=== PATIENT | female | born 1990 | race Caucasian/White ===

== ENCOUNTER 2017-01-26 05:03 | Inpatient (IN) | payer BC ==
[2017-01-26] MEDS ORDERED: Nalbuphine 20 MG/1 ML Amp IVPUSH PRN (05:40)
[2017-01-26] MEDS ORDERED: Lidocaine 1% 50 ML MDV INJECT ONE (05:40)
[2017-01-26] MEDS ORDERED: Sodium Chloride 0.9% 10 ML Syringe FLUSH PRN (05:40)
[2017-01-26] MEDS ORDERED: OXYTOCIN IV SCH (05:45)
[2017-01-26] MEDS ORDERED: LACTATED RINGERS IV SCH (05:45)
[2017-01-26] MEDS: Lactated Ringers 1,000 ML IV SCH ×3 (06:00→09:14)
--- NOTE | 2017-01-26 07:50 | PCM.LDHP ---
L&D History of Present Illness - General Date of Service: 01/26/17 Admit Problem/Dx: Patient Status Order with Admit Dx/Problem 01/26/17 05:40 Patient Status [ADT] Routine Patient Status: Refer to Observation Admission Diagnosis/Problem: Normal labor Reason for Admit: active labor Nurse Unit Type: Labor and Delivery Admitting Physician: Yara Gutierrez Attending Physician: Yara Gutierrez Admission Diagnosis/Problem Admission Diagnosis/Problem Normal labor 01/26/17 07:44 26 yo at 40 weeks 1 day gestation with SROM at 0100. Presented to Labor and delivery with irregular contractions at about 0500. Active movement. reassuring heart tones. no vaginal bleeding. clear vaginal fluid. Routine care, complicated by recurrent pruritis of uncertain etiology. EDC based on certain LMP with 20 week EDC within 3 days. O neg GBS Neg Rub Immune 01/26/17 07:50 Source of Information: Patient History Limitations: Reports: No limitations - History of Present Illness Location, : Reports: Abdomen Quality: Reports: Ache Severity: moderate Improves with: Reports: None Worsens with: Reports: None Associated Symptoms: Reports: vaginal fluid. Denies: vaginal bleeding - Related Data Allergies/Adverse Reactions: Allergies Allergy/AdvReac Type Severity Reaction Status Date / Time nuts Allergy Itching Uncoded 05/14/16 10:42 Home Medications: Home Meds . 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: Neurological History: Reports: Migraines Other Neuro History: daily Psychiatric History: Reports: Depression Other Psychiatric History: States she was taking medication for depression before getting , no suicide ideation, feeling sad and feeling like she didnt want to do anything - Infectious Disease History Infectious Disease History: Reports: Chicken pox Social & Family History - Family History Family Medical History: Unobtainable - Tobacco Use Smoking Status *Q: Never Smoker Second Hand Smoke Exposure: No - Caffeine Use Caffeine Use: Reports: None - Alcohol Use Days Per Week of Alcohol Use: 0 - Recreational Drug Use Recreational Drug Use: No H&P Review of Systems - Review of Systems: Review Of Systems: See Below General: Reports: no symptoms HEENT: Reports: no symptoms Pulmonary: Reports: no symptoms Cardiovascular: Reports: no symptoms Gastrointestinal: Reports: Abdominal pain Genitourinary: Reports: no symptoms Musculoskeletal: Reports: no symptoms Skin: Reports: no symptoms Psychiatric: Reports: no symptoms Neurological: Reports: no symptoms Hematologic/Lymphatic: Reports: no symptoms Immunologic: Reports: no symptoms L&D Exam - Exam Exam: See Below - Vital Signs Weight: 78.018 kg - OB Specific Contraction Intensity: Mild to Moderate movement: active heart tones: present heart tones per min: 140 Heart Rate (FHR) Variability: Moderate (6-25 bmp) Presentation: Vertex - Kelley Score Kelley Score Cervix Position: Midposition Kelley Score Consistency: Soft Kelley Score Effacement: 51-70% Kelley Score Dilation: > 5 cm Kelley Score Infant's Station: -3 Kelley Score Total: 8 - Exam General: alert, oriented HEENT: Conjunctiva clear Neck: supple Genitourinary: Normal external exam Extremities: normal inspection. No: edema Skin: warm, dry Psychiatric: alert, normal affect, normal mood - Patient Data Lab Results last 24 hrs: Laboratory Results - last 24 hr 01/26/17 Range/Units 05:50 WBC 8.53 (3.98-10.04) K/mm3 RBC 3.85 L (3.98-5.22) M/mm3 Hgb 10.0 L (11.2-15.7) gm/L Hct 32.0 L (34.1-44.9) % MCV 83.1 (79.4-94.8) fl MCH 26.0 (25.6-32.2) pg MCHC 31.3 L (32.2-35.5) g/dl RDW Std Deviation 41.2 (36.4-46.3) fL Plt Count 154 L (182-369) K/mm3 MPV 10.9 (9.4-12.3) fl Result Diagrams: 01/26/17 05:50 - Problem List (1) Normal labor SNOMED Code(s): 76134523 ICD Code: O80 - ENCOUNTER FOR FULL-TERM UNCOMPLICATED DELIVERY; Z37.9 - OUTCOME OF DELIVERY, UNSPECIFIED Status: Acute Current Visit: No Problem List Initiated/Reviewed/Updated: Yes Orders Last 24hrs: Active Orders 24 hr Category Date Time Status Patient Status [ADT] Routine ADT 01/26/17 05:40 Active Activity as Tolerated [RC] PFP Care 01/26/17 05:40 Active Communication Order [RC] ASDIRECTED Care 01/26/17 05:40 Active Heart Tones [RC] ASDIRECTED Care 01/26/17 05:40 Active Notify Provider [RC] PFP Care 01/26/17 05:40 Active Notify Provider [RC] PRN Care 01/26/17 05:40 Active Peripheral IV Care [RC] . DIRECTED Care 01/26/17 05:40 Active Vital Signs [RC] PER UNIT ROUTINE Care 01/26/17 05:40 Active Clear Liquid Diet [DIET] Diet 01/26/17 Breakfast Active Lactated Ringers [Ringers, Lactated] 1,000 ml Med 01/26/17 05:45 Active IV ASDIRECTED Nalbuphine [Nubain] Med 01/26/17 05:40 Active 10 mg IVPUSH Q2H PRN Oxytocin/Lactated Ringers [Pitocin in LR 10 Units/1,000 Med 01/26/17 05:45 Active ML] 10 units in 1,000 ml IV ASDIRECTED Sodium Chloride 0.9% [Saline Flush] Med 01/26/17 05:40 Active 10 ml FLUSH ASDIRECTED PRN Electronic Heart Tones Ext w TOCO [WOMSER] Oth 01/26/17 05:40 Ordered Routine Electronic Heart Tones Internal [WOMSER] Per Unit Oth 01/26/17 05:40 Ordered Routine Peripheral IV Insertion Adult [OM.PC] Routine Oth 01/26/17 05:40 Ordered Resuscitation Status Routine Resus Stat 01/26/17 05:40 Ordered Medication Orders Lactated Ringer's (Ringers, Lactated) 1,000 mls @ 100 mls/hr IV ASDIRECTED PREMA Oxytocin/Lactated Ringer's (Pitocin In Lr 10 Units/1,000 Ml) 10 units in 1,000 mls @ 500 mls/hr IV ASDIRECTED PREMA Nalbuphine HCl (Nubain) 10 mg IVPUSH Q2H PRN PRN Reason: Pain (moderate 4-6) Sodium Chloride (Saline Flush) 10 ml FLUSH ASDIRECTED PRN PRN Reason: Keep Vein Open Assessment/Plan Comment:: 26 yo at 40 weeks 1 day gestation with SROM at home Pt prefers epidural Continue with expectant management. GBS neg-no abx needed at this time.
[2017-01-26] MEDS ORDERED: fentaNYL 100 MCG/2 ML SDV ONE (08:15)
[2017-01-26] MEDS ORDERED: fentaNYL 100 MCG/2 ML SDV EPIDUR ONE (08:25)
[2017-01-26] MEDS ORDERED: Bupivacaine/fentaNYL/NS 100 ML Bag EPIDUR SCH (08:30)
--- NOTE | 2017-01-26 08:47 | PCM.PREANE ---
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 Respiratory: Reports: no symptoms Cardiovascular: Reports: no symptoms GI: Reports: no symptoms Other: Reports: none - PHYSICAL ASSESSMENT O2 Sat by Pulse Oximetry: 99 RR: 18 Vital Signs: Last Vital Signs Temp 36.9 C 01/26/17 05:30 Pulse 99 01/26/17 05:30 Resp 18 01/26/17 05:30 BP 123/74 01/26/17 05:30 Pulse Ox Height: 1.55 m Weight: 78.018 kg ASA Class: 2 Mental Status: alert & oriented x3 Airway Class: Mallampati = 1 Dentition: Reports: normal dentition Thyro-Mental Finger Breadths: 3 Mouth Opening Finger Breadths: 5 ROM/Head Extension: full Respiratory Status: lungs clear to auscultation bilaterally Cardiovascular Status: regular rate & rhythm - LAB Values: Laboratory Last Values WBC 8.53 K/mm3 (3.98-10.04) 01/26/17 05:50 RBC 3.85 M/mm3 (3.98-5.22) L 01/26/17 05:50 Hgb 10.0 gm/L (11.2-15.7) L 01/26/17 05:50 Hct 32.0 % (34.1-44.9) L 01/26/17 05:50 MCV 83.1 fl (79.4-94.8) 01/26/17 05:50 MCH 26.0 pg (25.6-32.2) 01/26/17 05:50 MCHC 31.3 g/dl (32.2-35.5) L 01/26/17 05:50 RDW Std Deviation 41.2 fL (36.4-46.3) 01/26/17 05:50 Plt Count 154 K/mm3 (182-369) L 01/26/17 05:50 MPV 10.9 fl (9.4-12.3) 01/26/17 05:50 - ALLERGIES Allergies/Adverse Reactions: Allergies Allergy/AdvReac Type Severity Reaction Status Date / Time nuts Allergy Itching Uncoded 05/14/16 10:42 - BLOOD Blood Available: No - ANESTHESIA PLAN Preop Beta Arabella: No Anesthesia Type Planned: epidural - ACKNOWLEDGEMENTS Pt an appropriate candidate for the planned anesthesia: Yes Alternatives and risks of anesthesia discussed w pt/guardian: Yes Pt/Guardian understands and agree with anesthesia plan: Yes PreAnesthesia Questionnaire - Past Health History Medical/Surgical History: Denies Medical/Surgical History Gastrointestinal History: Reports: GERD (with ) 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 (currently 40 weeks ) Para: 2 Neurological History: Reports: Migraines Other Neuro History: daily Psychiatric History: Reports: Depression Other Psychiatric History: States she was taking medication for depression before getting , no suicide ideation, feeling sad and feeling like she didnt want to do anything - Infectious Disease History Infectious Disease History: Reports: Chicken pox - History Comment History Comment: Home Meds: Vitamins - SUBSTANCE USE Smoking Status *Q: Never Smoker Tobacco Use Within Last Twelve Months: No Second Hand Smoke Exposure: No Days Per Week of Alcohol Use: 0 Recreational Drug Use History: No - HOME MEDS Home Medications: Home Meds . [No Known Home Meds] 05/14/16 [History] - CURRENT (IN HOUSE) MEDS Current Meds: Current Medications Fentanyl (Sublimaze) 100 mcg EPIDUR ONETIME ONE Stop: 01/26/17 08:26 Fentanyl/Bupivacaine HCl (Fentanyl/Bupivacaine/Ns 2 Mcg-0.125% 100 Ml) 100 ml EPIDUR ASDIRECTED [facility] Lactated Ringer's (Ringers, Lactated) 1,000 mls @ 100 mls/hr IV ASDIRECTED [facility] Last Admin: 01/26/17 08:30 Dose: 100 mls/hr Oxytocin/Lactated Ringer's (Pitocin In Lr 10 Units/1,000 Ml) 10 units in 1,000 mls @ 500 mls/hr IV ASDIRECTED [facility] Nalbuphine HCl (Nubain) 10 mg IVPUSH Q2H PRN PRN Reason: Pain (moderate 4-6) Sodium Chloride (Saline Flush) 10 ml FLUSH ASDIRECTED PRN PRN Reason: Keep Vein Open Discontinued Medications Fentanyl (Sublimaze) Confirm Administered Dose 100 mcg .ROUTE .STK-MED ONE Stop: 01/26/17 08:16 Last Admin: 01/26/17 08:26 Dose: Not Given Lidocaine HCl (Xylocaine 1%) 20 ml INJECT ONETIME ONE Stop: 01/26/17 05:41
[2017-01-26] MEDS ORDERED: ePHEDrine 50 MG/ML SDV IVPUSH PRN (08:50)
[2017-01-26] MEDS ORDERED: diphenhydrAMINE 50 MG/ML SDV IVPUSH PRN (08:50)
[2017-01-26] MEDS ORDERED: Witch Hazel Medicated Pads 100/Jar TOP PRN (11:55)
[2017-01-26] MEDS ORDERED: Docusate Sodium 100 MG Cap PO PRN (11:55)
[2017-01-26] MEDS ORDERED: Benzocaine/Menthol 20%-0.5% Spray 56 GM Canister TOP PRN (11:55)
[2017-01-26] MEDS ORDERED: Lanolin 100% Cream 7 GM Tube TOP PRN (11:55)
[2017-01-26] MEDS ORDERED: Acetaminophen 325 MG Tab PO PRN (11:55)
[2017-01-26] MEDS ORDERED: Bupivacaine 0.25% 10 ML SDV ONE (12:00)
--- NOTE | 2017-01-26 12:08 | PCM.SN ---
- Free Text/Narrative Note: ON at 1115 am this 26 yo female under epidural anesthesia delivered a viable male infant weighing 7 lbs 12 ounces with scores of 9 and 9 at 1 and 5 minutes resptectively. Delviery was via toa sterile field. Nuchal cord x 1 was reduced over the body. Infant was placed on mom's abdomen where a nurse was waiting. Cord was clamped and cut. An intact placenta with a 3 vessel cord delivered spontaneously at 1118. 10 units of pitocin was administered IV. An 1st degree perineal laceration was repaired in the usual fashion with 3-0 vicryl. and mom are in delivery room in stable condition.
[2017-01-26] MEDS: Ibuprofen 600 MG Tab PO PRN ×2 (12:43→18:55)
[2017-01-27] MEDS: Ibuprofen 600 MG Tab PO PRN ×4 (01:19→17:02)
--- NOTE | 2017-01-27 07:52 | PCM.DCSUM1 ---
Discharge Summary - Hospital Course Free Text/Narrative:: 26 yo at PPD #1 s/p NVD 1st degree perineal laceration 7 lbs 12 ounces Infant O pos Mother O neg GBS neg HGB 9.1 Exam unremarkable discharge to home - Discharge Data Discharge Date: 01/27/17 Discharge Disposition: Home, Self-Care 01 Condition: Good - Discharge Diagnosis/Problem(s) (1) Normal labor SNOMED Code(s): 52322779 ICD Code: O80 - ENCOUNTER FOR FULL-TERM UNCOMPLICATED DELIVERY; Z37.9 - OUTCOME OF DELIVERY, UNSPECIFIED Status: Acute Current Visit: Yes - Patient Instructions Diet: Heart Healthy Diet, Usual Diet as Tolerated Activity: As Tolerated, Rest and Relax Today Activity, Other: No intercourse for 6 week, no tampon use for 6 weeks Driving: May Drive Today Showering/Bathing: March Shower Wound/Incision Care: Keep Operative Site/Wound Site Clean and Dry Notify Provider of: Fever, Increased Pain, Swelling and Redness, Drainage, Nausea and/or Vomiting Other/Special Instructions: Start Slo Fe iron supplement 1-2 times daily for 1 month. continue on vitamin - Discharge Plan Home Medications: Home Meds Acetaminophen [Tylenol] 650 mg PO Q4H PRN #0 tablet 01/27/17 [Rx] Benzocaine/Menthol [Dermoplast Pain Relief [place]] 1 applic TOP ASDIRECTED PRN # 0 canister 01/27/17 [Rx] Docusate Sodium [Colace] 100 mg PO BID PRN #0 cap 01/27/17 [Rx] Ibuprofen [IJD: Ibuprofen] 600 mg PO Q4H PRN #0 tablet 01/27/17 [Rx] Witch Lisa [Tucks] 1 pad TOP ASDIRECTED PRN #0 pad 01/27/17 [Rx] Referrals: Yara Gutierrez MD [Primary Care Provider] - (8 weeks) - Discharge Summary/Plan Comment DC Time >30 min.: No - General Info Date of Service: 01/27/17 Functional Status: Reports: pain controlled, tolerating diet, ambulating, urinating - Review of Systems General: Reports: no symptoms Pulmonary: Reports: no symptoms Cardiovascular: Reports: no symptoms Genitourinary: Reports: no symptoms - Patient Data Vitals - Most Recent: Last Vital Signs Temp 36.3 C 03/02/17 01:19 Pulse 92 01/27/17 01:19 Resp 17 01/27/17 01:19 BP 102/69 01/27/17 01:19 Pulse Ox 97 01/27/17 01:19 Weight - Most Recent: 78.018 kg I&O - Last 24 hours: Intake & Output 01/26/17 01/27/17 01/27/17 22:59 06:59 14:59 Intake Total 2 Balance 2 Lab Results - Last 24 hrs: Laboratory Results - last 24 hr 01/26/17 01/27/17 Range/Units 13:05 06:19 Hgb 9.1 L (11.2-15.7) gm/L Hct 29.1 L (34.1-44.9) % Blood Type O NEGATIVE Gel Antibody Screen Positive Screen 0 ros/5 flds - neg RhIG Candidate? Yes Rhogam Indicated Yes, baby rh pos H Med Orders - Current: Current Medications Acetaminophen (Tylenol) 650 mg PO Q4H PRN PRN Reason: mild pain or fever Last Admin: 01/26/17 19:30 Dose: 650 mg Benzocaine/Menthol (Dermoplast Pain Relief [place]) 0 gm TOP ASDIRECTED PRN PRN Reason: Perineal Comfort Measure Last Admin: 01/26/17 12:40 Dose: 1 applic Docusate Sodium (Colace) 100 mg PO BID PRN PRN Reason: Constipation Emollient Ointment (Lansinoh Hpa) 0 gm TOP ASDIRECTED PRN PRN Reason: Sore Nipples Fentanyl/Bupivacaine HCl (Fentanyl/Bupivacaine/Ns 2 Mcg-0.125% 100 Ml) 100 ml EPIDUR ASDIRECTED PREMA Last Admin: 01/26/17 08:56 Dose: 100 ml Ibuprofen (Motrin) 600 mg PO Q4H PRN PRN Reason: Mild pain or fever Last Admin: 01/27/17 06:22 Dose: 600 mg Witch Lisa (Tucks) 1 pad TOP ASDIRECTED PRN PRN Reason: Hemorrhoid pain Last Admin: 01/26/17 12:40 Dose: 1 applic Discontinued Medications Diphenhydramine HCl (Benadryl) 25 mg IVPUSH Q6H PRN PRN Reason: pruritis Stop: 01/26/17 18:00 Ephedrine Sulfate (Ephedrine Sulfate) 5 mg IVPUSH ASDIRECTED PRN PRN Reason: Hypotension Stop: 01/26/17 18:00 Fentanyl (Sublimaze) Confirm Administered Dose 100 mcg .ROUTE .STK-MED ONE Stop: 01/26/17 08:16 Last Admin: 01/26/17 08:26 Dose: Not Given Fentanyl (Sublimaze) 100 mcg EPIDUR ONETIME ONE Stop: 01/26/17 08:26 Last Admin: 01/26/17 08:54 Dose: 100 mcg Lactated Ringer's (Ringers, Lactated) 1,000 mls @ 100 mls/hr IV ASDIRECTED [facility] Last Admin: 01/26/17 09:14 Dose: 100 mls/hr Oxytocin/Lactated Ringer's (Pitocin In Lr 10 Units/1,000 Ml) 10 units in 1,000 mls @ 500 mls/hr IV ASDIRECTED [facility] Last Admin: 01/26/17 11:28 Dose: 500 mls/hr Lidocaine HCl (Xylocaine 1%) 20 ml INJECT ONETIME ONE Stop: 01/26/17 05:41 Last Admin: 01/26/17 14:54 Dose: Not Given Nalbuphine HCl (Nubain) 10 mg IVPUSH Q2H PRN PRN Reason: Pain (moderate 4-6) Sodium Chloride (Saline Flush) 10 ml FLUSH ASDIRECTED PRN PRN Reason: Keep Vein Open - Exam General: Reports: alert, oriented HEENT: Reports: Pupils equal Cardiovascular: Reports: tachycardia Abdomen: Reports: bowel sounds present, soft, no tenderness, no distension Extremities: Reports: no edema, normal pulses Skin: Reports: warm, dry, intact Wound/Incisions: Reports: healing well Neurological: Reports: no new focal deficit Psy/Mental Status: Reports: alert, normal affect, normal mood *Q Meaningful Use (DIS) - VTE *Q VTE Criteria *Q: - Stroke *Q Stroke Criteria *Q: - AMI *Q AMI Criteria *Q: - General Info Date of Service: 01/27/17 - Patient Data Vital Signs - most recent: Last Vital Signs Temp 36.3 C 01/27/17 01:19 Pulse 92 01/27/17 01:19 Resp 17 01/27/17 01:19 BP 102/69 01/27/17 01:19 Pulse Ox 97 01/27/17 01:19 Weight - most recent: 78.018 kg I&O - last 24 hours: Intake & Output 01/26/17 01/27/17 01/27/17 22:59 06:59 14:59 Intake Total 2 Balance 2 Lab Results - last 24 hrs: Laboratory Results - last 24 hr 01/26/17 01/27/17 Range/Units 13:05 06:19 Hgb 9.1 L (11.2-15.7) gm/L Hct 29.1 L (34.1-44.9) % Blood Type O NEGATIVE Gel Antibody Screen Positive Screen 0 ros/5 flds - neg RhIG Candidate? Yes Rhogam Indicated Yes, baby rh pos H Med Orders - Current: Current Medications Acetaminophen (Tylenol) 650 mg PO Q4H PRN PRN Reason: mild pain or fever Last Admin: 01/26/17 19:30 Dose: 650 mg Benzocaine/Menthol (Dermoplast Pain Relief [place]) 0 gm TOP ASDIRECTED PRN PRN Reason: Perineal Comfort Measure Last Admin: 01/26/17 12:40 Dose: 1 applic Docusate Sodium (Colace) 100 mg PO BID PRN PRN Reason: Constipation Emollient Ointment (Lansinoh Hpa) 0 gm TOP ASDIRECTED PRN PRN Reason: Sore Nipples Fentanyl/Bupivacaine HCl (Fentanyl/Bupivacaine/Ns 2 Mcg-0.125% 100 Ml) 100 ml EPIDUR ASDIRECTED PRE[facility] Last Admin: 01/26/17 08:56 Dose: 100 ml Ibuprofen (Motrin) 600 mg PO Q4H PRN PRN Reason: Mild pain or fever Last Admin: 01/27/17 06:22 Dose: 600 mg Witch Lisa (Tucks) 1 pad TOP ASDIRECTED PRN PRN Reason: Hemorrhoid pain Last Admin: 01/26/17 12:40 Dose: 1 applic Discontinued Medications Diphenhydramine HCl (Benadryl) 25 mg IVPUSH Q6H PRN PRN Reason: pruritis Stop: 01/26/17 18:00 Ephedrine Sulfate (Ephedrine Sulfate) 5 mg IVPUSH ASDIRECTED PRN PRN Reason: Hypotension Stop: 01/26/17 18:00 Fentanyl (Sublimaze) Confirm Administered Dose 100 mcg .ROUTE .STK-MED ONE Stop: 01/26/17 08:16 Last Admin: 01/26/17 08:26 Dose: Not Given Fentanyl (Sublimaze) 100 mcg EPIDUR ONETIME ONE Stop: 01/26/17 08:26 Last Admin: 01/26/17 08:54 Dose: 100 mcg Lactated Ringer's (Ringers, Lactated) 1,000 mls @ 100 mls/hr IV ASDIRECTED [facility] Last Admin: 01/26/17 09:14 Dose: 100 mls/hr Oxytocin/Lactated Ringer's (Pitocin In Lr 10 Units/1,000 Ml) 10 units in 1,000 mls @ 500 mls/hr IV ASDIRECTED [facility] Last Admin: 01/26/17 11:28 Dose: 500 mls/hr Lidocaine HCl (Xylocaine 1%) 20 ml INJECT ONETIME ONE Stop: 01/26/17 05:41 Last Admin: 01/26/17 14:54 Dose: Not Given Nalbuphine HCl (Nubain) 10 mg IVPUSH Q2H PRN PRN Reason: Pain (moderate 4-6) Sodium Chloride (Saline Flush) 10 ml FLUSH ASDIRECTED PRN PRN Reason: Keep Vein Open - Interaction Infant Disposition, : in Room with Family Infant Interaction: Holding Infant Feeding: Attempted ; Nursed Fair/Poor Support Person: - Recovery Exam Fundal Tone: Firm Fundal Level: At Umbilicus Fundal Placement: Midline Lochia Amount: Small Lochia Color: Rubra/Red Perineum Description: Edematous, Other (see below) Other Perinuem Description: first degree with repair Episiotomy/Laceration: Approximated Bladder Status: Voiding Urinary Elimination: Voided - Exam Quality Assessment: skin breakdown General: alert Abdomen: bowel sounds present, soft Skin: warm, dry, intact
[2017-01-27 13:24] VITALS: BP 110/91
== END 2017-01-27 18:30 | disposition home or self-care (01) | DRG 560 ==
LOC: JD.OB 05:03 → JD.OBCHECK 05:03 → JD.OB 05:40 → OBSVTOIN 11:15 → JD.OB 11:15
PROVIDERS: ADMIT Family Medicine; ATTEND Family Medicine
PROC: 10E0XZZ Delivery of Products of Conception, External Approach (ICD-10-PCS; principal; 2017-01-26)
PROC: 0HQ9XZZ Repair Perineum Skin, External Approach (ICD-10-PCS; 2017-01-26)
PROC: 00HU33Z Insertion of Infusion Device into Spinal Canal, Percutaneous Approach (ICD-10-PCS; 2017-01-26)
PROC: 3E0R3CZ (ICD-10-PCS; 2017-01-26)
DX: O42.92 Full-term premature rupture of membranes, unspecified as to length of time between rupture and onset of labor (principal); Z3A.40 40 weeks gestation of pregnancy; Z37.0 Single live birth; O70.0 First degree perineal laceration during delivery; O69.81X0 Labor and delivery complicated by cord around neck, without compression, not applicable or unspecified; Z91.018 Allergy to other foods; F32.9 Major depressive disorder, single episode, unspecified
CPT/HCPCS: 36415; 85014; 85018; 85027; 85461; 86850; 86870; 86900; 86901; A9270-GY; J2590; J2790; J3010; J7120

== ENCOUNTER 2017-11-13 16:02 | Emergency (ER) | payer BC ==
[2017-11-13 16:28] VITALS: BP 107/63
--- NOTE | 2017-11-13 17:52 | EDM.PDOC ---
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 Rash started as small red bumps surrounding pubic hair follicles and has spread to essentially most of the hair follicles to pubic bone and under to inner thighs. She denies itching inside the vagina, no vaginal discharge or pain. No vomiting or diarrhea. She did make a long car ride a week or so ago but nothing else out of the ordinary, no new detergent, clothing. She is , monogomas with only her with last intercourse being 4-5 months ago. No hx of STI' s. She is very anxious about this condition. 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-vaginal deliveries Neurological History: Reports: Migraines Other Neuro History: daily Psychiatric History: Reports: Depression Other Psychiatric History: States she was taking medication for depression before getting , no suicide ideation, feeling sad and feeling like she didnt want to do anything - Infectious Disease History Infectious Disease History: Reports: Chicken Pox - History Comment History Comment: Home Meds: Vitamins Social & Family History - Family History Family Medical History: Unobtainable - Tobacco Use Smoking Status *Q: Never Smoker Second Hand Smoke Exposure: No - Caffeine Use Caffeine Use: Reports: Coffee, Tea - Alcohol Use Days Per Week of Alcohol Use: 0 - Recreational Drug Use Recreational Drug Use: No ED ROS GENERAL - Review of Systems Review Of Systems: See Below Constitutional: Reports: No Symptoms HEENT: Reports: No Symptoms Respiratory: Reports: No Symptoms Cardiovascular: Reports: No Symptoms GI/Abdominal: Reports: No Symptoms : Reports: Other (rash; finished menses 2 wks ago) Musculoskeletal: Reports: No Symptoms Skin: Reports: Rash (pubic area and into inner thighs) Neurological: Reports: No Symptoms ED EXAM, SKIN/RASH Exam: See Below Exam Limited By: No Limitations General Appearance: Alert, WD/WN, No Apparent Distress Eye Exam: Bilateral Eye: EOMI, PERRL Ears: Normal External Exam, Hearing Grossly Normal Nose: Normal Inspection Throat/Mouth: Normal Inspection, Normal Lips, Normal Teeth Head: Atraumatic, Normocephalic Neck: Normal Inspection Respiratory/Chest: No Respiratory Distress, Lungs Clear, Normal Breath Sounds Cardiovascular: Regular Rate, Rhythm Peripheral Pulses: 2+: Dorsalis Pedis (L), Dorsalis Pedis (R) GI/Abdominal: Normal Bowel Sounds, Soft, Non-Tender (Female) Exam: Other (mons pubis area is with erythema with small pustules at most of hair follicles, consistent through to inner thighs bilat. No vaginal lesions noted. ). No: Vaginal Discharge, Vaginal Lesions Extremities: Normal Inspection, Normal Capillary Refill Neurological: Alert, Oriented, Normal Cognition Psychiatric: Normal Affect, Normal Mood, Anxious (when talking about this condition) Skin: Warm, Dry, Other (see under exam ) Characteristics: Maculopapular (surrounding hair follicles) Lymphatic: No Adenopathy Course - Vital Signs Last Recorded V/S: Last Vital Signs Temp 99.6 F 11/13/17 16:27 Pulse 92 11/13/17 16:27 Resp 20 11/13/17 16:27 BP 107/63 11/13/17 16:27 Pulse Ox 98 11/13/17 16:27 - Orders/Labs/Meds Meds: Medications Discontinued Medications Generic Name Dose Route Start Last Admin Trade Name Nicanor PRN Reason Stop Dose Admin Cephalexin 500 mg 11/13/17 17:54 11/13/17 17:59 Keflex PO 11/13/17 17:55 500 mg ONETIME ONE Administration Departure - Departure Time of Disposition: 17:50 Disposition: Home, Self-Care 01 Condition: Good Clinical Impression: Folliculitis - Discharge Information Referrals: Yara Gutierrez MD [Primary Care Provider] - Forms: ED Department Discharge Additional Instructions: Wash with soap and water daily; can use warm epsom salt soaks in bath Antibiotic as prescribed; keflex 500mg 3 times daily and clindamycin topical solution- can use 4 times daily to affected area. Recommend probiotic once daily Push fluids Change/throw away current razor; recommend do not shave for 2 weeks or until lesions are healed.
[2017-11-13] MEDS ORDERED: Cephalexin 500 MG Cap PO ONE (17:54)
== END 2017-11-13 18:01 | disposition home or self-care (01) ==
LOC: JD.ED 16:02
DX: L73.9 Follicular disorder, unspecified (principal); Z91.018 Allergy to other foods
CPT/HCPCS: 99283; A9270

== ENCOUNTER 2021-01-15 07:08 | Inpatient (IN) | payer BC ==
[2021-01-15] MEDS ORDERED: Nalbuphine 10 MG/1 ML Vial IVPUSH PRN (07:19)
[2021-01-15] MEDS ORDERED: Sodium Chloride 0.9% 10 ML Syringe FLUSH PRN (07:19)
[2021-01-15] MEDS ORDERED: Ondansetron 4 MG/2 ML SDV IVPUSH PRN (07:19)
--- NOTE | 2021-01-15 07:19 | PCM.LDHP ---
L&D History of Present Illness - General Date of Service: 01/15/21 Admit Problem/Dx: Admission Diagnosis/Problem Admission Diagnosis/Problem Source of Information: Patient History Limitations: Reports: No Limitations - History of Present Illness Introduction:: Patient is a 30 y/o at 39 1/7 wks who presents for planned IOL. Doing well today. 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: , Spontaneous : 5 Para: 3 Psychiatric History: Reports: Anxiety, Depression - Infectious Disease History Infectious Disease History: Reports: Chicken Pox - Past Surgical History Other Surgical History Comment: no past surgical history Social & Family History - Family History Family Medical History: Unobtainable - Tobacco Use Tobacco Use Status *Q: Never Tobacco User - Caffeine Use Caffeine Use: Reports: Coffee, Tea - Alcohol Use Alcohol Use History: No - Recreational Drug Use Recreational Drug Use: No H&P Review of Systems - Review of Systems: Review Of Systems: See Below General: Reports: No Symptoms Pulmonary: Reports: No Symptoms Cardiovascular: Reports: No Symptoms Gastrointestinal: Reports: No Symptoms Genitourinary: Reports: No Symptoms Musculoskeletal: Reports: No Symptoms Psychiatric: Reports: No Symptoms Neurological: Reports: No Symptoms L&D Exam - Exam Exam: See Below - OB Specific Contraction Intensity: Mild Movement: Active Heart Tones: Present Heart Tones per Min: 130 Heart Rate (FHR) Variability: Moderate (6-25 bmp) Presentation: Vertex - Kelley Score Kelley Score Cervix Position: Midposition Kelley Score Consistency: Soft Kelley Score Effacement: 51-70% Kelley Score Dilation: 3-4 cm Kelley Score Infant's Station: -2 Kelley Score Total: 8 - Exam General: Alert, Oriented, Cooperative Lungs: Clear to Auscultation, Normal Respiratory Effort Cardiovascular: Regular Rate, Regular Rhythm GI/Abdominal Exam: Soft, Non-Tender Genitourinary: Normal external exam Extremities: Normal Inspection Skin: Warm, Dry, Intact - Patient Data Result Diagrams: 01/15/21 07:34 - Problem List (1) 39 weeks gestation of SNOMED Code(s): 22563205 ICD Code: Z3A.39 - 39 WEEKS GESTATION OF Status: Acute Current Visit: Yes Problem List Initiated/Reviewed/Updated: Yes Assessment/Plan Comment:: * Labs to be done * GBS negative * Pitocin and AROM for pain management * Pain management per patient preference * Anticipate
[2021-01-15] MEDS ORDERED: Oxytocin/Lactated Ringers 10 UNIT/1,000 ML BAG IV SCH ×2 (07:30)
[2021-01-15] MEDS: Lactated Ringers 1,000 ML IV SCH ×2 (07:59→15:55)
[2021-01-15 09:12] VITALS: BP 115/74; PULSE 91
[2021-01-15] MEDS ORDERED: Bupivacaine/fentaNYL/NS 100 ML Bag EPIDUR PRN (15:24)
[2021-01-15] MEDS ORDERED: ePHEDrine 50 MG/ML SDV IVPUSH PRN (15:24)
[2021-01-15] MEDS ORDERED: diphenhydrAMINE 50 MG/ML SDV IVPUSH PRN (15:24)
[2021-01-15] MEDS ORDERED: fentaNYL 100 MCG/2 ML SDV EPIDUR PRN (15:24)
--- NOTE | 2021-01-15 16:14 | PCM.SN.2 ---
- Free Text/Narrative Note: Called for epidural placement. Patient consented for labor epidural. Positioned with strong contractions 8 cm dilation on arrival. Standard prep per sterile technique, local anesthetic to skin, Epidural needle advanced, Dr. Pearce to bedside, epidural needle removed, repositioned for cervical check, full dilation noted with desire to push. Unable to complete epidural procedure at this time.
--- NOTE | 2021-01-15 16:23 | PCM.PREANE ---
Preanesthetic Assessment - Procedure Proposed Procedure: Labor Epidural - Anesthesia/Transfusion/Family Hx Anesthesia History: Prior Anesthesia Without Reaction Family History of Anesthesia Reaction: No Transfusion History: No Prior Transfusion(s) - Review of Systems General: No Symptoms Pulmonary: No Symptoms Cardiovascular: No Symptoms Gastrointestinal: Other (GERD with ) Other: Reports: Depression - Physical Assessment Vital Signs: Last Vital Signs Temp 37.3 C 01/15/21 07:50 Pulse 91 01/15/21 07:50 Resp 16 01/15/21 07:50 BP 115/74 01/15/21 07:50 Pulse Ox Pulse Ox 98% Height: 1.55 m Weight: 78.018 kg ASA Class: 2 Mental Status: Alert & Oriented x3 Airway Class: Mallampati = 2 Dentition: Reports: Normal Dentition Thyro-Mental Finger Breadths: 3 Mouth Opening Finger Breadths: 3 ROM/Head Extension: Full Lungs: Clear to Auscultation, Normal Respiratory Effort Cardiovascular: Regular Rate, Regular Rhythm - Lab Values: Laboratory Last Values WBC 6.01 K/mm3 (3.98-10.04) 01/15/21 07:34 RBC 3.51 M/mm3 (3.98-5.22) L 01/15/21 07:34 Hgb 8.6 gm/dl (11.2-15.7) L 01/15/21 07:34 Hct 28.5 % (34.1-44.9) L 01/15/21 07:34 MCV 81.2 fl (79.4-94.8) 01/15/21 07:34 MCH 24.5 pg (25.6-32.2) L 01/15/21 07:34 MCHC 30.2 g/dl (32.2-35.5) L 01/15/21 07:34 RDW Std Deviation 42.2 fL (36.4-46.3) 01/15/21 07:34 Plt Count 148 K/mm3 (182-369) L 01/15/21 07:34 MPV 11.2 fl (9.4-12.3) 01/15/21 07:34 SARS-CoV-2 RNA (DREW) Negative (NEGATIVE) 01/15/21 07:40 Blood Type O NEGATIVE 01/15/21 07:34 Gel Antibody Screen Positive 01/15/21 07:34 - Allergies Allergies/Adverse Reactions: Allergies Allergy/AdvReac Type Severity Reaction Status Date / Time nuts Allergy Itching Uncoded 01/15/21 07:51 - Acknowledgements Anesthesia Type Planned: Epidural Pt an Appropriate Candidate for the Planned Anesthesia: Yes Alternatives and Risks of Anesthesia Discussed w Pt/Guardian: Yes Pt/Guardian Understands and Agrees with Anesthesia Plan: Yes PreAnesthesia Questionnaire - Past Health History Medical/Surgical History: Denies Medical/Surgical History Gastrointestinal History: Reports: GERD Genitourinary History: Reports: UTI, 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 OB/BYN History: 3 pregnancies-vaginal deliveries Neurological History: Reports: Migraines Other Neuro History: daily Psychiatric History: Reports: Anxiety, Depression Other Psychiatric History: States she was taking medication for depression before getting , no suicide ideation, feeling sad and feeling like she didnt want to do anything; history of PP depression - Infectious Disease History Infectious Disease History: Reports: Chicken Pox - History Comment History Comment: Home Meds: Vitamins - SUBSTANCE USE Tobacco Use Status *Q: Never Tobacco User Second Hand Smoke Exposure: No Recreational Drug Use History: No - HOME MEDS Home Medications: Home Meds Vits #93/Iron Fum/FA [ Formula Tablet] 1 tab PO DAILY 01/02/21 [History] - CURRENT (IN HOUSE) MEDS Current Meds: Current Medications Diphenhydramine HCl (Benadryl) 25 mg IVPUSH Q6H PRN PRN Reason: pruritis Ephedrine Sulfate (Ephedrine Sulfate) 5 mg IVPUSH ASDIRECTED PRN PRN Reason: Hypotension Fentanyl (Sublimaze) 100 mcg EPIDUR Q3H PRN PRN Reason: Pain Last Admin: 01/15/21 15:54 Dose: 100 mcg Documented by: Fentanyl/Bupivacaine HCl (Fentanyl/Bupivacaine/Ns 2 Mcg-0.125% 100 Ml) 100 ml EPIDUR ASDIRECTED PRN PRN Reason: Pain Last Admin: 01/15/21 15:53 Dose: 100 ml Documented by: Oxytocin/Lactated Ringer's (Pitocin In Lr 10 Units/1,000 Ml) 10 unit in 1,000 mls @ 12 mls/hr IV TITRATE PREMA; Protocol Last Titration: 01/15/21 13:52 Dose: 0 munits/min, 0 mls/hr Documented by: Oxytocin/Lactated Ringer's (Pitocin In Lr 10 Units/1,000 Ml) 10 unit in 1,000 mls @ 500 mls/hr IV .CONTINUOUS PREMA Lactated Ringer's (Ringers, Lactated) 1,000 mls @ 40 mls/hr IV ASDIRECTED [facility] Last Admin: 01/15/21 15:55 Dose: 40 mls/hr Documented by: Nalbuphine HCl (Nubain) 10 mg IVPUSH Q2H PRN PRN Reason: Pain Ondansetron HCl (Zofran) 4 mg IVPUSH Q4H PRN PRN Reason: Nausea/Vomiting Sodium Chloride (Saline Flush) 10 ml FLUSH ASDIRECTED PRN PRN Reason: Keep Vein Open
--- NOTE | 2021-01-15 16:27 | PCM.DEL ---
L & D Note - General Info Date of Service: 01/15/21 - Delivery Note Labor: Induced by ARM, Induced by Oxytocin Delivery Outcome: Livebirth Infant Delivery Method: Spontaneous Vaginal Delivery-Single Infant Delivery Mode: Spontaneous Presentation: Right Occiput Anterior (DONALD) Nuchal Cord: None Anesthesia Type: None Amniotic Fluid Description: Clear Episiotomy Type: None Laceration: None Placenta: Intact, Spontaneous Cord: 3 Vessels Estimated Blood Loss: 100 Resuscitation Needed: Yes : Bulb Syringe, Stimulated, Warmed, Bendena Used, Warmer Used Delivery Comments (Free Text/Narrative):: Patient found to be complete and began pushing. With maternal pushing effort head delivered from an DONALD presentation. No nuchal cord present. With gentle downward traction the shoulders and body delivered. placed on maternal abdomen. Cord clamped and cut. Cord blood obtained. Placenta allowed time to separate and expelled intact. Inspection of the perineum showed no lacerations - General Info Date of Service: 01/15/21 - Patient Data Vitals - Most Recent: Last Vital Signs Temp 37.3 C 01/15/21 07:50 Pulse 91 01/15/21 07:50 Resp 16 01/15/21 07:50 BP 115/74 01/15/21 07:50 Pulse Ox Weight - Most Recent: 78.018 kg - Problem List & Annotations (1) 39 weeks gestation of SNOMED Code(s): 76449475 Code(s): Z3A.39 - 39 WEEKS GESTATION OF Status: Acute Current Visit: Yes (2) Vaginal delivery SNOMED Code(s): 272014583 Code(s): O80 - ENCOUNTER FOR FULL-TERM UNCOMPLICATED DELIVERY Status: Acute Current Visit: Yes - Problem List Review Problem List Initiated/Reviewed/Updated: Yes - My Orders Last 24 Hours: My Active Orders 01/15/21 Breakfast Regular Diet [DIET] 01/15/21 07:19 Nalbuphine [Nubain] 10 mg IVPUSH Q2H PRN Ondansetron [Zofran] 4 mg IVPUSH Q4H PRN Sodium Chloride 0.9% [Saline Flush] 10 ml FLUSH ASDIRECTED PRN Resuscitation Status Routine 01/15/21 07:20 Patient Status [ADT] Routine Communication Order [RC] ASDIRECTED Communication Order [RC] ASDIRECTED Communication Order [RC] ASDIRECTED Notify Provider [RC] ASDIRECTED Notify Provider [RC] PRN Peripheral IV Care [RC] . DIRECTED Up ad Lorna [RC] ASDIRECTED Vaginal Exam [RC] ASDIRECTED Vital Signs [RC] ASDIRECTED Electronic Heart Tones Internal [WOMSER] Per Unit Routine Peripheral IV Insertion Adult [OM.PC] Routine 01/15/21 07:30 Lactated Ringers [Ringers, Lactated] 1,000 ml IV ASDIRECTED Oxytocin/Lactated Ringers [Pitocin in LR 10 Units/1,000 ML] 10 unit in 1,000 ml IV .CONTINUOUS Oxytocin/Lactated Ringers [Pitocin in LR 10 Units/1,000 ML] 10 unit in 1,000 ml IV TITRATE 01/15/21 07:34 ANTIBODY IDENTIFICATION [BBK] Routine RAPID PLASMA REAGIN,RPR [CHEM] Routine TYPE AND SCREEN [BBK] Routine - Assessment Assessment:: PPD#0 - Plan Plan:: * Routine cares * Breast feeding * Discharge home on 1-2 days
[2021-01-15] MEDS ORDERED: Acetaminophen 325 MG Tab PO PRN (17:53)
[2021-01-15] MEDS ORDERED: Witch Hazel Medicated Pads 40/Jar TOP PRN (17:53)
[2021-01-15] MEDS ORDERED: Benzocaine/Menthol 20%-0.5% Spray 56 GM Canister TOP PRN (17:53)
[2021-01-15] MEDS ORDERED: Docusate Sodium 100 MG Cap PO PRN (17:53)
[2021-01-15] MEDS: Ibuprofen 600 MG Tab PO PRN (18:40)
[2021-01-16] MEDS: Ibuprofen 600 MG Tab PO PRN ×2 (00:54→06:49)
--- NOTE | 2021-01-16 08:41 | PCM.PNPP ---
- General Info Date of Service: 01/16/21 Functional Status: Reports: Pain Controlled, Tolerating Diet, Ambulating, Urinating - Review of Systems General: Reports: No Symptoms Pulmonary: Reports: No Symptoms Cardiovascular: Reports: No Symptoms Gastrointestinal: Reports: No Symptoms Genitourinary: Reports: No Symptoms Musculoskeletal: Reports: No Symptoms Neurological: Reports: No Symptoms - Patient Data Vital Signs - Most Recent: Last Vital Signs Temp 37.3 C 01/15/21 07:50 Pulse 91 01/15/21 07:50 Resp 16 01/15/21 07:50 BP 115/74 01/15/21 07:50 Pulse Ox Weight - Most Recent: 78.018 kg Lab Results - Last 24 Hours: Laboratory Results - last 24 hr 01/15/21 01/15/21 Range/Units 07:34 07:34 RPR Non-reactive (NONREACTIVE) Blood Type O NEGATIVE Gel Antibody Screen Positive Screen 0 ros/5 flds - neg RhIG Candidate? Yes Med Orders - Current: Current Medications Acetaminophen (Tylenol) 650 mg PO Q4H PRN PRN Reason: mild pain or fever Benzocaine/Menthol (Dermoplast Pain Relief [place]) 0 gm TOP ASDIRECTED PRN PRN Reason: Perineal Comfort Measure Last Admin: 01/15/21 18:41 Dose: 1 each Documented by: Docusate Sodium (Colace) 100 mg PO BID PRN PRN Reason: Constipation Ibuprofen (Motrin) 600 mg PO Q6H PRN PRN Reason: Mild pain or fever Last Admin: 01/16/21 06:49 Dose: 600 mg Documented by: Deni Dior) 1 pad TOP ASDIRECTED PRN PRN Reason: Perineal Comfort Measure Last Admin: 01/15/21 18:40 Dose: 1 each Documented by: Discontinued Medications Diphenhydramine HCl (Benadryl) 25 mg IVPUSH Q6H PRN PRN Reason: pruritis Ephedrine Sulfate (Ephedrine Sulfate) 5 mg IVPUSH ASDIRECTED PRN PRN Reason: Hypotension Fentanyl (Sublimaze) 100 mcg EPIDUR Q3H PRN PRN Reason: Pain Last Admin: 01/15/21 15:54 Dose: 100 mcg Documented by: Fentanyl/Bupivacaine HCl (Fentanyl/Bupivacaine/Ns 2 Mcg-0.125% 100 Ml) 100 ml EPIDUR ASDIRECTED PRN PRN Reason: Pain Last Admin: 01/15/21 15:53 Dose: 100 ml Documented by: Oxytocin/Lactated Ringer's (Pitocin In Lr 10 Units/1,000 Ml) 10 unit in 1,000 mls @ 12 mls/hr IV TITRATE PREMA; Protocol Last Titration: 01/15/21 13:52 Dose: 0 munits/min, 0 mls/hr Documented by: Oxytocin/Lactated Ringer's (Pitocin In Lr 10 Units/1,000 Ml) 10 unit in 1,000 mls @ 500 mls/hr IV .CONTINUOUS PREMA Last Admin: 01/15/21 16:20 Dose: 500 mls/hr Documented by: Lactated Ringer's (Ringers, Lactated) 1,000 mls @ 40 mls/hr IV ASDIRECTED PREMA Last Admin: 01/15/21 15:55 Dose: 40 mls/hr Documented by: Nalbuphine HCl (Nubain) 10 mg IVPUSH Q2H PRN PRN Reason: Pain Ondansetron HCl (Zofran) 4 mg IVPUSH Q4H PRN PRN Reason: Nausea/Vomiting Sodium Chloride (Saline Flush) 10 ml FLUSH ASDIRECTED PRN PRN Reason: Keep Vein Open - Interaction Disposition, : in Room with Family Infant Interaction: Holding Feeding: Attempted ; Nursed Fair/Poor, Breastfed Infant; Nursed Well Support Person: , Equalizer Operator - Recovery Exam Fundal Tone: Firm Fundal Placement: Midline Lochia Amount: Scant Perineum Description: Intact, Minimal Bruising/Swelling Episiotomy/Laceration: None Bladder Status: Voiding Urinary Elimination: Voided - Exam General: Alert, Oriented, Cooperative GI/Abdominal Exam: Soft, Non-Tender Extremities: Normal Inspection Skin: Warm, Dry, Intact - Problem List & Annotations (1) 39 weeks gestation of SNOMED Code(s): 51621401 Code(s): Z3A.39 - 39 WEEKS GESTATION OF Status: Acute Current Visit: Yes (2) Vaginal delivery SNOMED Code(s): 386028011 Code(s): O80 - ENCOUNTER FOR FULL-TERM UNCOMPLICATED DELIVERY Status: Acute Current Visit: Yes - Problem List Review Problem List Initiated/Reviewed/Updated: Yes - My Orders Last 24 Hours: My Active Orders 01/15/21 Dinner Regular Diet [DIET] 01/15/21 17:53 Acetaminophen [TylenoL] 650 mg PO Q4H PRN Benzocaine/Menthol [Dermoplast Pain Relief [place]] See Dose Instructions TOP ASDIRECTED PRN Docusate Sodium [Colace] 100 mg PO BID PRN Ibuprofen [Motrin] 600 mg PO Q6H PRN witch Krysten [Tucks] 1 pad TOP ASDIRECTED PRN Heat Therapy [OM.PC] PRN 01/15/21 17:53 Activity as Tolerated [RC] PER UNIT ROUTINE Vital Signs [RC] ASDIRECTED Assess Lochia [WOMSER] Per Unit Routine Assess Uterine Involution [WOMSER] Per Unit Routine Breast Pump [WOMSER] Per Unit Routine Ice Therapy [OM.PC] Per Unit Routine Perineal Care [OM.PC] Per Unit Routine Peripheral IV Discontinue [OM.PC] Routine Sitz Bath [OM.PC] Per Unit Routine 01/16/21 17:53 Heat Therapy [OM.PC] PRN - Assessment Assessment:: PPD#1 - Plan Plan:: * Routine cares * Breast feeding * Discharge home today
--- NOTE | 2021-01-16 08:43 | PCM.DCSUM1 ---
Discharge Summary - Discharge Data Discharge Date: 01/16/21 Discharge Disposition: Home, Self-Care 01 Condition: Good - Referral to Home Health Primary Care Physician: Rema Pearce MD - Discharge Diagnosis/Problem(s) (1) 39 weeks gestation of SNOMED Code(s): 69387344 ICD Code: Z3A.39 - 39 WEEKS GESTATION OF Status: Acute Current Visit: Yes (2) Vaginal delivery SNOMED Code(s): 603068386 ICD Code: O80 - ENCOUNTER FOR FULL-TERM UNCOMPLICATED DELIVERY Status: Acute Current Visit: Yes - Patient Summary/Data Complications: None Consults: None Recommended Follow-up Testing/Procedures: Follow up in 3 weeks for check Hospital Course: 30 y/o at 39 1/7 wks who presented for IOL. Done with pitocin and AROM. Progressed well and underwent an uncomplicated . See delivery note. did well and was discharged home on PPD#1 - Patient Instructions Diet: Regular Diet as Tolerated Activity: As Tolerated Activity, Other: Pelvic rest for 6 weeks Driving: May Drive Today Showering/Bathing: May Shower Showering/Bathing, Other: May Bathe Notify Provider of: Fever, Increased Pain, Swelling and Redness, Drainage, Nausea and/or Vomiting - Discharge Plan *PRESCRIPTION DRUG MONITORING PROGRAM REVIEWED*: No *COPY OF PRESCRIPTION DRUG MONITORING REPORT IN PATIENT [place]: No Home Medications: Home Meds Vits #93/Iron Fum/FA [ Formula Tablet] 1 tab PO DAILY 01/02/21 [History] Docusate Sodium [Colace] 100 mg PO BID PRN cap 01/16/21 [Rx] Ibuprofen [Motrin] 600 mg PO Q6H PRN tablet 01/16/21 [Rx] Referrals: Rema Pearce MD [Primary Care Provider] - (3 weeks for check ) - Discharge Summary/Plan Comment DC Time >30 min.: No - Patient Data Vitals - Most Recent: Last Vital Signs Temp 37.3 C 01/15/21 07:50 Pulse 91 01/15/21 07:50 Resp 16 01/15/21 07:50 BP 115/74 01/15/21 07:50 Pulse Ox Weight - Most Recent: 78.018 kg Lab Results - Last 24 hrs: Laboratory Results - last 24 hr 01/15/21 01/15/21 Range/Units 07:34 07:34 RPR Non-reactive (NONREACTIVE) Blood Type O NEGATIVE Gel Antibody Screen Positive Screen 0 ros/5 flds - neg RhIG Candidate? Yes Med Orders - Current: Current Medications Acetaminophen (Tylenol) 650 mg PO Q4H PRN PRN Reason: mild pain or fever Benzocaine/Menthol (Dermoplast Pain Relief [place]) 0 gm TOP ASDIRECTED PRN PRN Reason: Perineal Comfort Measure Last Admin: 01/15/21 18:41 Dose: 1 each Documented by: Docusate Sodium (Colace) 100 mg PO BID PRN PRN Reason: Constipation Ibuprofen (Motrin) 600 mg PO Q6H PRN PRN Reason: Mild pain or fever Last Admin: 01/16/21 06:49 Dose: 600 mg Documented by: Deni Gonzalez (Rafi) 1 pad TOP ASDIRECTED PRN PRN Reason: Perineal Comfort Measure Last Admin: 01/15/21 18:40 Dose: 1 each Documented by: Discontinued Medications Diphenhydramine HCl (Benadryl) 25 mg IVPUSH Q6H PRN PRN Reason: pruritis Ephedrine Sulfate (Ephedrine Sulfate) 5 mg IVPUSH ASDIRECTED PRN PRN Reason: Hypotension Fentanyl (Sublimaze) 100 mcg EPIDUR Q3H PRN PRN Reason: Pain Last Admin: 01/15/21 15:54 Dose: 100 mcg Documented by: Fentanyl/Bupivacaine HCl (Fentanyl/Bupivacaine/Ns 2 Mcg-0.125% 100 Ml) 100 ml EPIDUR ASDIRECTED PRN PRN Reason: Pain Last Admin: 01/15/21 15:53 Dose: 100 ml Documented by: Oxytocin/Lactated Ringer's (Pitocin In Lr 10 Units/1,000 Ml) 10 unit in 1,000 mls @ 12 mls/hr IV TITRATE PREMA; Protocol Last Titration: 01/15/21 13:52 Dose: 0 munits/min, 0 mls/hr Documented by: Oxytocin/Lactated Ringer's (Pitocin In Lr 10 Units/1,000 Ml) 10 unit in 1,000 mls @ 500 mls/hr IV .CONTINUOUS PREMA Last Admin: 01/15/21 16:20 Dose: 500 mls/hr Documented by: Lactated Ringer's (Ringers, Lactated) 1,000 mls @ 40 mls/hr IV ASDIRECTED PREMA Last Admin: 01/15/21 15:55 Dose: 40 mls/hr Documented by: Nalbuphine HCl (Nubain) 10 mg IVPUSH Q2H PRN PRN Reason: Pain Ondansetron HCl (Zofran) 4 mg IVPUSH Q4H PRN PRN Reason: Nausea/Vomiting Sodium Chloride (Saline Flush) 10 ml FLUSH ASDIRECTED PRN PRN Reason: Keep Vein Open
== END 2021-01-16 18:00 | disposition home or self-care (01) | DRG 560 ==
LOC: JD.NBCHECK 07:08 → JD.OB 07:16 → OBSVTOIN 16:16 → JD.OB 16:17
PROVIDERS: ADMIT Obstetrics & Gynecology; ATTEND Obstetrics & Gynecology
PROC: 10E0XZZ Delivery of Products of Conception, External Approach (ICD-10-PCS; principal; 2021-01-15)
PROC: 10907ZC Drainage of Amniotic Fluid, Therapeutic from Products of Conception, Via Natural or Artificial Opening (ICD-10-PCS; 2021-01-15)
PROC: 3E033VJ Introduction of Other Hormone into Peripheral Vein, Percutaneous Approach (ICD-10-PCS; 2021-01-15)
PROC: 3E0R3BZ Introduction of Anesthetic Agent into Spinal Canal, Percutaneous Approach (ICD-10-PCS; 2021-01-15)
PROC: 00HU33Z Insertion of Infusion Device into Spinal Canal, Percutaneous Approach (ICD-10-PCS; 2021-01-15)
PROC: 3E0334Z Introduction of Serum, Toxoid and Vaccine into Peripheral Vein, Percutaneous Approach (ICD-10-PCS; 2021-01-16)
DX: O99.62 Diseases of the digestive system complicating childbirth (principal); K21.9 Gastro-esophageal reflux disease without esophagitis; Z91.010 Allergy to peanuts; Z37.0 Single live birth; Z3A.39 39 weeks gestation of pregnancy; Z20.822 Contact with and (suspected) exposure to COVID-19; O26.893 Other specified pregnancy related conditions, third trimester; Z67.41 Type O blood, Rh negative
CPT/HCPCS: 36415; 59025; 59409; 85027; 85461; 86592; 86850; 86870; 86900; 86901; A9270-GY; J2590; J2790; J3010; J7120; U0002